=== PATIENT | male | born 1985 | race Hispanic/Latino ===

== ENCOUNTER 2018-02-19 19:24 | Emergency (ER) | payer OTHER ==
--- NOTE | 2018-02-19 20:36 | ED PDOC ---
HPI: Chest Pain Time Seen by Provider: 02/19/18 19:36 Chief Complaint (Nursing): Chest Pain Chief Complaint (Provider): Chest Pain History Per: Patient History/Exam Limitations: no limitations Onset/Duration Of Symptoms: Hrs Current Symptoms Are (Timing): Still Present Additional Complaint(s): 32 y/o male with a PMHx of HTN and rheumatoid arthritis presents to the ED complaining of intermittent chest pain, onset 8 hours ago. Patient reports chest pain began while he was driving his car and did not radiate anywhere else in his body. Patient reports pain is currently resolved and was not associated with any other complaints. Patient also reports of similar pain in the past but has never been evaluated for it. Denies shortness of breath with/without exertion, pleurtic pain, dizziness, syncope, leg swelling, back pain, and diaphoresis. PMD: in [place], [place] Past Medical History Reviewed: Historical Data, Nursing Documentation, Vital Signs Vital Signs: Last Vital Signs Temp 98.4 F 02/19/18 19:30 Pulse 71 02/19/18 23:47 Resp 18 02/19/18 20:32 BP 134/92 H 02/19/18 20:32 Pulse Ox 99 02/19/18 23:47 - Medical History PMH: HTN, Rheumatoid Arthritis - Surgical History Surgical History: No Surg Hx - Family History Family History: States: Unknown Family Hx - Allergies Allergies/Adverse Reactions: Allergies Allergy/AdvReac Type Severity Reaction Status Date / Time No Known Allergies Allergy Verified 02/19/18 19:33 ABDIEL Risk Score for UA/NSTEMI - ABDIEL Risk Score Age > 64: NO 3 or more CAD Risk Factors: NO Known CAD (Stenosis greater than 50%): NO Aspirin use in past 7 days: NO Severe Angina: NO EKG ST changes greater than 0.5mm: NO Positive Cardiac Marker: NO ABDIEL Score: 0 Risk %: 5% Wells Criteria for PE - Wells Criteria for Pulmonary Embolism Clinical Signs and Symptoms of DVT: No P.E is #1 Diagnosis, or Equally Likely: No Heart Rate >100: No Immobilization at least 3 days;Surgery previous 4 weeks: No Previous, objectively diagnosed PE or DVT: No Hemoptysis: No Malignancy w/treatment within 6 months, or palliative: No Total Score: 0 Review of Systems ROS Statement: Except As Marked, All Systems Reviewed And Found Negative Cardiovascular: Positive for: Chest Pain Respiratory: Negative for: Shortness of Breath, SOB with Exertion, Pleuritic Pain Musculoskeletal: Negative for: Back Pain, Leg Pain Neurological: Negative for: Dizziness Physical Exam - Reviewed Nursing Documentation Reviewed: Yes Vital Signs Reviewed: Yes - Physical Exam Appears: Positive for: Non-toxic, No Acute Distress Head Exam: Positive for: ATRAUMATIC, NORMAL INSPECTION, NORMOCEPHALIC Skin: Positive for: Normal Color, Warm, Dry Eye Exam: Positive for: Normal appearance, EOMI, PERRL Neck: Positive for: Normal, Painless ROM, Supple Cardiovascular/Chest: Positive for: Regular Rate, Rhythm. Negative for: Murmur Respiratory: Positive for: Normal Breath Sounds. Negative for: Respiratory Distress Gastrointestinal/Abdominal: Positive for: Normal Exam, Soft. Negative for: Tenderness Back: Positive for: Normal Inspection. Negative for: L CVA Tenderness, R CVA Tenderness, Vertebral Tenderness Extremity: Positive for: Normal ROM. Negative for: Pedal Edema, Deformity Neurologic/Psych: Positive for: Alert, Oriented. Negative for: Motor/Sensory Deficits - Laboratory Results Result Diagrams: 02/19/18 20:30 02/19/18 20:30 - ECG ECG Rhythm: Positive for: Normal QRS, Sinus Rhythm. Negative for: ST/T Changes Rate: 71 O2 Sat by Pulse Oximetry: 99 (RA) Pulse Ox Interpretation: Normal Medical Decision Making Medical Decision Making: Time: 2029 Impression: Chest pain, currently resolved Differentials include but not limited to ACS and other pulmonary and cardiac conditions considered but not listed. Plan: -- EKG -- BMP -- Troponin I -- CBC with differentials -- CBC -- D Dimer -- CXR Portable -- [employer] [id number] CTA Chest FINDINGS: Pulmonary arteries: No evidence of pulmonary embolism. Aorta: Cardiac motion limits assessment of the ascending aorta. The aorta is otherwise unremarkable. Lungs: Unremarkable. No mass. No consolidation. Pleural space: No significant pleural effusion. No pneumothorax. Heart: No cardiomegaly or pericardial effusion. Bones/joints: Mild scoliosis. Chronic appearing fracture of the T1 spinous process. No acute osseous abnormality. Soft tissues: Unremarkable. Lymph nodes: No adenopathy. Intraperitoneal space: No acute findings in the upper abdomen. IMPRESSION: No evidence of pulmonary embolism Scribe Attestation: Documented by Geo Vale acting as a scribe for Len Astudillo MD. Provider Scribe Attestation: All medical record entries made by the Scribe were at my direction and personally dictated by me. I have reviewed the chart and agree that the record accurately reflects my personal performance of the history, physical exam, medical decision making, and the department course for this patient. I have also personally directed, reviewed, and agree with the discharge instructions and disposition. Disposition - Clinical Impression Clinical Impression: Chest pain Doctor Will See Patient In The: Office Counseled Patient/Family Regarding: Studies Performed, Diagnosis, Need For Followup - Disposition Referrals: [facility] [Outside] Disposition: Routine/Home Disposition Time: 23:41 Condition: GOOD Additional Instructions: ULI DAO, thank you for letting us take care of you today. Your provider was Len Astudillo MD and you were treated for CHEST PAIN. The emergency medical care you received today was directed at your acute symptoms. If you were prescribed any medication, please fill it and take as directed. It may take several days for your symptoms to resolve. Return to the Emergency Department if your symptoms worsen, do not improve, or if you have any other problems. Please contact your doctor or call one of the physicians/clinics you have been referred to that are listed on the Patient Visit Information form that is included in your discharge packet. Bring any paperwork you were given at discharge with you along with any medications you are taking to your follow up visit. Our treatment cannot replace ongoing medical care by a primary care provider outside of the emergency department. Thank you for allowing the [facility] team to be part of your care today. If you had an X-Ray or CT scan: A Radiologist will review the ED reading if any change in treatment is needed we will contact you. If you had a blood, urine, or wound culture: It will take several days for the results, if any change in treatment is needed we will contact you. If you had an STI test: It will take 48 hours for the results. Please call after 1 week if you have not heard back. Instructions: Chest Pain Forms: [employer] (Y[place]i)
[2018-02-19 20:40] LABS: BASO # 0.1 K/uL (0.0-0.2); BASO % 1.1 % (0.0-2.0); EOS # 0.3 K/uL (0.0-0.7); EOS % 5.3 % (0.0-4.0); LYMPH # 1.5 K/uL (1.0-4.3); LYMPH % 30.5 % (20.0-40.0); MEAN CELL VOLUME 91.5 fl (80.0-94.0); MEAN CORPUSCULAR HEMOGLOBIN 32.5 pg (27.0-31.0); MEAN CORPUSCULAR HGB CONC 35.5 g/dL (33.0-37.0); MONO # 0.6 K/uL (0.0-0.8); MONO % 13.1 % (0.0-10.0); NEUT # 2.5 K/uL (1.8-7.0); NRBC % 0.1 % (0.0-0.0); RBC 4.63 Mil/uL (4.40-5.90); RED CELL DISTRIBUTION WIDTH 12.6 % (11.5-14.5); WHITE BLOOD COUNT 4.9 K/uL (4.8-10.8)
[2018-02-19 20:49] LABS: BLOOD UREA NITROGEN 14 mg/dl (9-20); CALCIUM 8.8 mg/dL (8.4-10.2); GFR AFRICAN-AMERICAN > 60; GFR NON-AFRICAN AMERICAN > 60
[2018-02-19] MEDS ORDERED: Sodium Chloride 0.9% 50 ML IV ONE (22:12)
[2018-02-19] MEDS ORDERED: Iodixanol 320 MG/ML 100 ML BOTTLE IV ONE (22:13)
[2018-02-20 00:34] VITALS: BP 136/82; PULSE 58; RESP 16; TEMP 98.2; O2SAT 100
--- NOTE | 2018-02-20 08:35 | RAD ---
Date of service: 02/19/2018 HISTORY: chest pain COMPARISON: No prior. FINDINGS: LUNGS: No active pulmonary disease. PLEURA: No significant pleural effusion identified, no pneumothorax apparent. CARDIOVASCULAR: Normal. OSSEOUS STRUCTURES: No significant abnormalities. VISUALIZED UPPER ABDOMEN: Normal. OTHER FINDINGS: None. IMPRESSION: No acute cardiopulmonary disease appreciated.
--- NOTE | 2018-02-20 08:47 | CARD ---
APPROVED REPORT Date of service: 02/19/2018 EKG Measurement Heart [id number] <Conclusion> Normal sinus rhythm Normal ECG
--- NOTE | 2018-02-20 10:18 | CT ---
Date of service: 02/19/2018 PROCEDURE: CT Chest with contrast (Pulmonary Angiogram) HISTORY: chest pain COMPARISON: None available. TECHNIQUE: Axial computed tomography images were obtained of the chest in the pulmonary arterial phase of enhancement. Coronal and sagittal reformatted images were created and reviewed. Intravenous contrast dose: Visipaque 320, 95 cc Radiation dose: Total exam DLP = 363.47 mGy-cm. This CT exam was performed using one or more of the following dose reduction techniques: Automated exposure control, adjustment of the mA and/or kV according to patient size, and/or use of iterative reconstruction technique. FINDINGS: PULMONARY ARTERIES: Unremarkable. No pulmonary embolism. AORTA: No acute findings. No thoracic aortic aneurysm. LUNGS: Unremarkable. No nodule, mass or pulmonary consolidation. PLEURAL SPACES: Unremarkable. No effusion or pneumothorax. HEART: Unremarkable. No cardiomegaly. No significant pericardial effusion. LYMPH NODES: No lymphadenopathy. BONES, CHEST WALL: No definite acute fracture appreciated. A small curvilinear density seen posterior to T1 spinous process potentially reflecting old fracture or heterotopic calcification. OTHER FINDINGS: Unremarkable. IMPRESSION: No CT evidence of pulmonary embolus, infiltrate pleural or pericardial effusion. No significant lymphadenopathy. No definitive mass. Concordant preliminary report from [facility], 02/19/2018.
== END 2018-02-20 00:10 | disposition home or self-care (01) ==
LOC: H.ER 19:24
DX: R50.9 Fever, unspecified (principal); I10 Essential (primary) hypertension; M06.9 Rheumatoid arthritis, unspecified
CPT/HCPCS: 71045; 71275; 80048; 84484; 85025; 85378; 93005; 99284; Q9967